=== PATIENT | female | born 1945 | race Caucasian/White ===

== ENCOUNTER → 2017-09-27 | Outpatient (CLI) | payer MEDICARE ==
[~2017-09-27] MED LIST: ALEN70; ASPI81CH PO; CALPHO600; CHOL10002 PO; FISH1000 PO; Fiber Therapy0.52 GM PO; LEVO750 PO; OCUVITE EYE +1 EACH PO; RESERVATROL; RESVERATROL50 MG PO
[2017-09-29 12:57] LABS: HPV Genotype 16 Not Detected (NOTDET); HPV Genotype 18 Not Detected (NOTDET)
[2017-10-03 09:46] LABS: HPV High Risk Other Not Detected (NOTDET)
== END | disposition home or self-care (01) ==
LOC: LAB SHORT 15:15 → LAB 15:15
PROVIDERS: Obstetrics & Gynecology Gynecology
DX: Z91.89 Other specified personal risk factors, not elsewhere classified (principal)
CPT/HCPCS: 87624; G0123

== ENCOUNTER → 2018-10-02 | Outpatient (CLI) | payer MEDICARE ==
[2018-10-04 15:06] LABS: HPV 16 Negative (Negative); HPV 18 Negative (Negative); HPV OTHER HR TYPES Negative (Negative)
== END | disposition home or self-care (01) ==
LOC: LAB 17:27 → LAB SHORT 17:27
PROVIDERS: Obstetrics & Gynecology Gynecology
DX: Z91.89 Other specified personal risk factors, not elsewhere classified (principal)
CPT/HCPCS: 87624; G0123

== ENCOUNTER 2021-04-20 07:09 | Day surgery (SDC) | payer MEDICARE ==
[~2021-04-20] VITALS: Ht 149.9 cm; Wt 58.2 kg
--- NOTE | 2021-04-20 08:15 | NUR ---
04/20/21 0815 LIEN BOWER EYE DROP INSERTED AT 0740. JOSE A INSERTED AT 0741
== END 2021-04-20 09:07 | disposition home or self-care (01) ==
LOC: ORSCSDS 07:09
PROVIDERS: Ophthalmology
PROC: 08RK3JZ Replacement of Left Lens with Synthetic Substitute, Percutaneous Approach (ICD-10-PCS; principal; 2021-04-20 08:30)
DX: H25.12 Age-related nuclear cataract, left eye (principal)
CPT/HCPCS: J2001; J2250; J3010; J3301; J7040; V2632

== ENCOUNTER 2021-05-18 08:02 | Day surgery (SDC) | payer MEDICARE ==
[~2021-05-18] VITALS: Ht 149.9 cm; Wt 57.2 kg
== END 2021-05-18 09:52 | disposition home or self-care (01) ==
LOC: ORSCSDS 08:02
PROVIDERS: Ophthalmology
PROC: 08RJ3JZ Replacement of Right Lens with Synthetic Substitute, Percutaneous Approach (ICD-10-PCS; principal; 2021-05-18 09:30)
DX: H25.11 Age-related nuclear cataract, right eye (principal)
CPT/HCPCS: J2001; J2250; J3010; J3301; J7040; V2632

== ENCOUNTER 2024-06-15 17:53 | Emergency (ER) | payer MEDICARE ==
[~2024-06-15] VITALS: Ht 157.5 cm; Wt 59.0 kg
[2024-06-15 18:12] VITALS: BP 164/84
[2024-06-15] MEDS ORDERED: Acetaminophen 325 MG TABLET PO ONE (18:15)
[2024-06-15 18:42] LABS: CORONAVIRUS COVID-19 AG Negative (NEGATIVE); INFLUENZA A AG Positive (NEGATIVE); INFLUENZA B AG Negative (NEGATIVE)
[2024-06-15] MEDS ORDERED: Tamiflu75 MG PO (18:57)
[2024-06-15] MEDS ORDERED: Oseltamivir Phosphate 75 MG Cap PO ONE (19:00)
== END 2024-06-15 19:05 | disposition home or self-care (01) ==
LOC: ER 17:53
PROVIDERS: Physician Assistant
DX: J10.1 Influenza due to other identified influenza virus with other respiratory manifestations (principal)
CPT/HCPCS: 71046; 87428-QW; 99283-25; A9270